=== PATIENT | female | born 1985 | race Asian ===

== ENCOUNTER 2018-09-25 05:44 | Inpatient (IN) | payer BC, MEDICAID ==
[2018-09-25] MEDS ORDERED: OXYTOCIN/NORMAL SALINE 20 UNIT/1,000 ML RTUINJ ONE (06:21)
[2018-09-25] MEDS ORDERED: MISOPROSTOL 0.2 MG TABLET ONE (06:21)
[2018-09-25] MEDS ORDERED: OXYTOCIN 10 UNIT/ML VIAL ONE (06:21)
[2018-09-25] MEDS ORDERED: LIDOCAINE 1% INJ-PF (10 MG/ML) 30 ML SDV ONE (06:21)
[2018-09-25] MEDS: RINGERS SOLUTION,LACTATED 1,000 ML IV PRN ×3 (06:41→09:13)
--- NOTE | 2018-09-25 07:18 | Admission Physical ---
Datetime Report Generated by CPN: 09/25/2018 07:18 CURRENT ADMISSION Chief Complaint: Uterine Contractions Indication for Induction: Not Applicable Admit Impression : , Intrauterine ; Active Labor Admit Plan: Admit to Unit; Initiate Labor Protocol ALLERGIES Medication Allergies: Yes Medication Allergies: hydrocodone/VT/Generalized Itc (07/09/2016) Latex: No Latex Allergies OBSTETRICAL HISTORY EDC: 10/19/2018 00:00 : 4 Para: 3 Term: 3 : 0 SAB: 0 IAB: 0 Ectopic: 0 Livin Cesareans: 0 VBACs: 0 Gestational Diabetes: No Rh Sensitization: No Incompetent Cervix: No HARMAN: No Infertility: No ART Treatment: No Uterine Anomaly: No IUGR: No Hx Previous C/S: No Macrosomia: No Hx Loss/Stillborn: No PIH: No Hx : No Placenta Previa/Abruption: No Depression/PP Depression: No PTL/PROM: No Post Hemorrhage: No SEE RECORDS Alcohol: No Marijuana : No Cocaine: No Other Illicit Drugs: No Cigarettes: Never Smoker. 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 Surgery: No Heart Disease: No Hosp/Surgery: No Autoimmune Disorder: No Anesthetic Complications: No Kidney Disease: No Abnormal Pap Smear: No Neuro/Epilepsy: No Psychiatric Disorders: No Other Medical Diseases: No Hepatitis/Liver Disease: No Significant Family History: No Varicosities/Phlebitis: No Trauma/Violence : No Thyroid Dysfunction: No INFECTIOUS HISTORY Gonorrhea: No Genital Herpes: No Chlamydia: No Tuberculosis: Yes Syphilis: No Hepatitis: No HIV/AIDS Exposure: No Rash or Viral Illness: No HPV: No Infectious History Comments: latent tuberculosis treated 2015 PHYSICAL EXAM General: Normal HEENT: Normal Neurologic: Normal Thyroid: Normal Heart: Normal Lungs: Normal Breast: Normal Back: Normal Abdomen: Normal Genitourinary Exam: Normal Extremities: Normal DTRs: Normal Pelvic Type: Adequate Vital Signs: Reviewed; Within Normal Limits VAGINAL EXAM Dilatation: 5-6 Effacement: 50 Station: -2 Contraction Comments: q 5 min MEMBRANES Membranes: Intact FETUS A EGA: 36.4 Monitoring: External US FHR- Baseline: 120s Variability: Moderate 6-25bpm Accelerations: 15X15 Decelerations: None FHR Category: Category I Admit Comment: Pt c/o contractions. Membranes intact. GBS Negative. PLANS FOR LABOR AND DELIVERY Labor and Delivery: None Pain Management: Epidural Feeding Preference: Both Benefit of Breast Feed Discussed: Yes Circumcision: Yes INFORMED CONSENT Signature: with User ID: [email or web address]
[2018-09-25 07:27] LABS: ABSOLUTE EOSINOPHILS # (AUTO) 0.1 10^3/uL (0.0-0.6); ABSOLUTE LYMPHOCYTES (AUTO) 1.3 10^3/uL (0.5-4.7); ABSOLUTE MONOCYTES (AUTO) 0.6 10^3/uL (0.1-1.4); ABSOLUTE NEUT (AUTO) 5.4 10^3/uL (1.7-8.2); BASOPHILS % (AUTO) 0.3 % (0-2); EOSINOPHILS % (AUTO) 1.4 % (0-6); HEMATOCRIT 29.6 % (36.0-47.0); HEMOGLOBIN 9.9 g/dL (12.0-15.5); LYMPHOCYTES % (AUTO) 17.7 % (13-45); MEAN CORPUSCULAR HEMOGLOBIN 28.2 pg (27.0-33.4); MEAN CORPUSCULAR HGB CONC 33.6 g/dL (32.0-36.0); MEAN CORPUSCULAR VOLUME 84 fl (80-97); MONOCYTES % (AUTO) 8.5 % (3-13); PLATELET COUNT 222 10^3/uL (150-450); RED BLOOD COUNT 3.52 10^6/uL (3.72-5.28); RED CELL DISTRIBUTION WIDTH 13.6 % (11.5-14.0); SEGMENTED NEUTROPHILS % (AUTO) 72.1 % (42-78); TOTAL CELLS COUNTED % (AUTO) 100 %; WHITE BLOOD COUNT 7.5 10^3/uL (4.0-10.5)
[2018-09-25] MEDS ORDERED: FENTANYL/BUPIVACAINE/NS/PF 300 MCG/150 ML RTUINJ EPI ONE (08:24)
[2018-09-25] MEDS ORDERED: EPHEDRINE SULFATE INJ 50 MG/1 ML AMPULE ONE (08:24)
[2018-09-25] MEDS ORDERED: BUPIVACAINE HCL 0.25 % INJ/PF (2.5 MG/1 ML) 30 ML VIAL ONE (08:25)
[2018-09-25] MEDS ORDERED: LIDOCAINE 1.5%/EPINEPHRINE INJ 5 ML AMP ONE (08:25)
[2018-09-25] MEDS ORDERED: PENICILLIN G POTASSIUM 5,000,000 UNIT in DEXTROSE 5%-WATER 100 ML IV ONE (08:51)
[2018-09-25] MEDS ORDERED: PENICILLIN G-K 5 MILLION UNIT VIAL ONE ×2 (08:54→12:39)
[2018-09-25 12:21] LABS: APPEARANCE,URINE CLEAR; BILIRUBIN,URINE NEGATIVE (NEGATIVE); COLOR,URINE COLORLESS; GLUCOSE, URINE NEGATIVE (NEGATIVE); KETONES,URINE NEGATIVE (NEGATIVE); LEUKOCYTE ESTERASE,URINE TRACE (NEGATIVE); NITRITE,URINE NEGATIVE (NEGATIVE); PROTEIN,URINE NEGATIVE (NEGATIVE); URINE SPECIFIC GRAVITY 1.004; UROBILINOGEN,URINE NEGATIVE mg/dL (<2.0)
[2018-09-25] MEDS ORDERED: PENICILLIN G POTASSIUM 2,500,000 UNIT in DEXTROSE 5%-WATER 50 ML IV SCH (12:52)
[2018-09-25 12:53] LABS: URINE AMPHETAMINES SCREEN NEGATIVE; URINE BARBITURATES SCREEN NEGATIVE; URINE BENZODIAZEPINES SCREEN NEGATIVE; URINE COCAINE SCREEN NEGATIVE; URINE MARIJUANA (THC) SCREEN NEGATIVE; URINE METHADONE SCREEN NEGATIVE; URINE PHENCYCLIDINE SCREEN NEGATIVE
[2018-09-25] MEDS ORDERED: ACETAMINOPHEN WITH CODEINE #3 TABLET PO PRN ×2 (15:10)
[2018-09-25] MEDS ORDERED: OXYTOCIN/NORMAL SALINE 20 UNIT/1,000 ML RTUINJ IV PRN (15:10)
[2018-09-25] MEDS ORDERED: MEASLES,MUMPS&RUBELLA VACC/PF 0.5 ML VIAL SUBCUT PRN (15:10)
[2018-09-25] MEDS ORDERED: MAGNESIUM HYDROXIDE SUSP 30 ML UDCUP PO PRN (15:10)
[2018-09-25] MEDS ORDERED: ACETAMINOPHEN 650 MG SUPP.RECT PR PRN (15:10)
[2018-09-25] MEDS ORDERED: DIBUCAINE 1% OINTMENT 56 GM TP PRN (15:10)
[2018-09-25] MEDS ORDERED: PSEUDOEPHEDRINE HCL 30 MG TABLET PO PRN (15:10)
[2018-09-25] MEDS ORDERED: DIPHENHYDRAMINE HCL 25 MG CAPSULE PO PRN (15:10)
[2018-09-25] MEDS ORDERED: GLYCERIN/WITCH HAZEL LEAF 1 EACH MED..PAD TP PRN (15:10)
[2018-09-25] MEDS ORDERED: BENZOCAINE/MENTHOL AEROSOL SPRAY 56 ML TOP PRN (15:10)
[2018-09-25] MEDS ORDERED: PROMETHAZINE HCL INJ 25 MG/1 ML VIAL IV PRN (15:10)
[2018-09-25] MEDS ORDERED: ZOLPIDEM TARTRATE 5 MG TABLET PO PRN (15:10)
[2018-09-25] MEDS ORDERED: DIPH/PERTUSS(ACELL)/TETANUS VAC/PF 0.5 ML SYR (>=10YO) IM PRN (15:10)
[2018-09-25] MEDS ORDERED: PROMETHAZINE HCL 25 MG TABLET PO PRN (15:10)
[2018-09-25] MEDS ORDERED: NA PHOS,M-B/NA PHOS,DI-BA (ADULT) 133 ML ENEMA PR PRN (15:10)
[2018-09-25] MEDS ORDERED: PROMETHAZINE HCL 25 MG SUPP.RECT PR PRN (15:10)
[2018-09-25] MEDS ORDERED: MISOPROSTOL 0.2 MG TABLET PR ONE (15:14)
--- NOTE | 2018-09-25 16:11 | Delivery Summary ---
Del Sum A-C Datetime Report Generated by CPN: 09/25/2018 16:10 DELIVERY PERSONNEL DELIVERY PERSONNEL: [id number] Delivery Doctor:: Fanta Pillai CNM Nurse Household Refrigeration Mechanic Certified:: Fanta Pillai CNM Labor and Delivery Nurse:: Shanna Jimenez RNspray painter helper Nurse:: Gena Moyer RN Nursery Nurse:: Jud Porter RN Process Mechanic/METAL STORAGE WORKER: Mary Christopher CNA II Process Mechanic/METAL STORAGE WORKER: Kiana Sandy, TOBACCO SPRAYER MATERNAL INFORMATION Delivery Anesthesia: Epidural Medications After Delivery: Pitocin Drip 20 Units/1000ml NSS; Cytotec 1000mcg Per Rectum/Vagina Estimated Blood Loss (ml): 400 Maternal Complications: None Provider Comments: LAMONTE VIABLE MALE WITH SPONTANEOUS CRY. NO LACERATIONS. CORD DOUBLE CLAMPED AND CUT. SPONTANEOUS INTACT PLACENTA WITH 3VC. CYTOTEC IL 1000MG GIVEN FOR UTERINE ATONY. MOTHER AND INFANT STABLE IN L_D#5 LABOR SUMMARY EDC: 10/19/2018 00:00 No. Babies in Womb: 1 Attempted: No Labor Anesthesia: Epidural LABOR INFORMATION Reason for Induction: Not Applicable Onset of Labor: 09/25/2018 02:30 Complete Dilatation: 09/25/2018 13:23 Oxytocin: N/A Group B Beta Strep: unknown Antibiotics # of Doses: 2 Antibiotics Time of Last Dose: 12:44 Name of Antibiotic Given: penicillin Steroids Given: None Reason Steroids Not Administered: Not Applicable MEMBRANES Membranes Rupture Method: Artificial Rupture of Membranes: 09/25/2018 13:20 Length of Rupture (hr): 1.37 Amniotic Fluid Color: Clear Amniotic Fluid Amount: Moderate Amniotic Fluid Odor: Normal STAGES OF LABOR Stage 1 hr: 10 Stage 1 min: 53 Stage 2 hr: 1 Stage 2 min: 19 Stage 3 hr: 0 Stage 3 min: 5 Total Time in Labor hr: 12 Total Time in Labor min: 17 VAGINAL DELIVERY Episiotomy: None Laceration #1: None Laceration Extension #1: N/A BABY A INFORMATION Delivery Date/Time: 09/25/2018 14:42 Method of Delivery: Vaginal Born in Route : No : N/A Forceps: N/A Vacuum Extraction: N/A Shoulder Dystocia : No PRESENTATION/POSITION BABY A Presentation: Cephalic Cephalic Presentation: Vertex Vertex Position: Left Occipital Anterior Breech Presentation: N/A PLACENTA INFORMATION BABY A Placenta Delivery Time : 09/25/2018 14:47 Placenta Method of Delivery: Spontaneous Placenta Status: Delivered SCORES BABY A Heart Rate 1 min: >100 bpm Resp Effort 1 min: Good Cry Reflex Irritability 1 min: Cough or Sneeze or Pulls Away Muscle Tone 1 min: Active Motion Color 1 min: Body Sun, Extremities Blue Resuscitation Effort 1 min: N/A SCORE 1 MIN: 9 Heart Rate 5 min: >100 bpm Resp Effort 5 min: Good Cry Reflex Irritability 5 min: Cough or Sneeze or Pulls Away Muscle Tone 5 min: Active Motion Color 5 min: Body Sun, Extremities Blue Resuscitation Effort 5 min: N/A SCORE 5 MIN: 9 INFORMATION BABY A Gestational Age at Delivery: 36.4 Gestational Status: Late - 34- 36.6 Weeks Outcome : Liveborn Condition : Stable Infant Sex: Male IDENTIFICATION BABY A Infant Verification Date/Time: 09/25/2018 14:50 ID Band Number: [id number] Mother's Name Verified: Yes RN Verifying Infant: Shmaar Jimenez, RN, MAbby Moyer, RN WEIGHT/LENGTH BABY A Birthweight (gm): 2798 Infant Weight (lb): 6 Weight (oz): 3 Length (in): 19.00 Length (cm): 48.26 CORD INFORMATION BABY A Nuchal Cord : N/A Cord Blood Taken: Yes-For Eval (Mom's Blood Type - or O+) Suction: None ASSESSMENT BABY A Infant Complications: None Physical Findings at Delivery: Within Normal Limits Infant Respirations: Appears Normal Skin to Skin: Yes Skin to Skin Time (min): 60 Business Planning Analyst/ALS Called : No Care By: susana porter Transferred To: Remains with Mother BABY B INFORMATION : N/A SIGNATURES Assignment: Janet Jimenez MD Signature: with User ID: [email or web address] : with User ID: [email or web address] : I was personally available for consultation and serving as supervising physician for the MLP.
[2018-09-25] MEDS: FERROUS SULFATE 325 MG TABLET PO SCH (17:31)
[2018-09-25] MEDS: IBUPROFEN 800 MG TABLET PO SCH (17:31)
[2018-09-25] MEDS: DOCUSATE SODIUM 100 MG CAPSULE PO SCH (17:32)
[2018-09-25] MEDS: FAMOTIDINE 20 MG TABLET PO SCH (21:53)
[2018-09-26] MEDS: IBUPROFEN 800 MG TABLET PO SCH ×3 (01:24→17:16)
[2018-09-26 07:36] LABS: ABSOLUTE EOSINOPHILS # (AUTO) 0.1 10^3/uL (0.0-0.6); ABSOLUTE MONOCYTES (AUTO) 1.2 10^3/uL (0.1-1.4); ABSOLUTE NEUT (AUTO) 9.4 10^3/uL (1.7-8.2); BASOPHILS % (AUTO) 0.3 % (0-2); EOSINOPHILS % (AUTO) 1.1 % (0-6); HEMATOCRIT 29.6 % (36.0-47.0); HEMOGLOBIN 9.8 g/dL (12.0-15.5); LYMPHOCYTES % (AUTO) 15.6 % (13-45); MEAN CORPUSCULAR HEMOGLOBIN 27.6 pg (27.0-33.4); MEAN CORPUSCULAR HGB CONC 33.1 g/dL (32.0-36.0); MEAN CORPUSCULAR VOLUME 84 fl (80-97); MONOCYTES % (AUTO) 9.1 % (3-13); PLATELET COUNT 237 10^3/uL (150-450); RED BLOOD COUNT 3.54 10^6/uL (3.72-5.28); RED CELL DISTRIBUTION WIDTH 13.6 % (11.5-14.0); SEGMENTED NEUTROPHILS % (AUTO) 73.9 % (42-78); TOTAL CELLS COUNTED % (AUTO) 100 %; WHITE BLOOD COUNT 12.7 10^3/uL (4.0-10.5)
[2018-09-26] MEDS: FERROUS SULFATE 325 MG TABLET PO SCH ×2 (09:11→17:15)
[2018-09-26] MEDS: PRENATAL VITAMIN W DHA CAPSULE PO SCH (09:12)
[2018-09-26] MEDS: FAMOTIDINE 20 MG TABLET PO SCH ×2 (09:12→21:07)
[2018-09-26] MEDS: DOCUSATE SODIUM 100 MG CAPSULE PO SCH ×2 (09:12→17:16)
[2018-09-26] MEDS: SENNOSIDES/DOCUSATE 8.6-50 MG 1 EACH TABLET PO SCH (09:12)
--- NOTE | 2018-09-26 10:58 | PDOC PROGRESS REPORT ---
Subjective-OB Progress Note for:: 09/26/18 Subjective: Pt doing well, no concerns. She reports light bleeding, reg diet and voiding without difficulty. Cramps not relieved by Motrin, declined other pain med for now. Physical Exam (OB) Vital Signs: Temp Pulse Resp BP Pulse Ox 98.2 F 84 18 118/77 98 09/26/18 07:58 09/26/18 07:58 09/26/18 07:58 09/26/18 07:58 09/26/18 07:58 Intake & Output 09/25/18 09/26/18 09/27/18 06:59 06:59 06:59 Intake Total 317 Balance 317 Weight 59.6 kg - PIH/Pre-Eclampsia DTR's: 2 + Clonus: Negative Headache: Absent Epigastric Pain: No Visual Changes: No - Lochia Lochia Amount: Scant < 10 ml Lochia Color: Rubra/Red - Abdomen Description: Soft Hernia Present: No Fundal Description: Firm, Midline Fundal Height: u/u - u/2 Objective-Diagnostic Laboratory: 09/26/18 06:20 09/25/18 09/26/18 07:47 06:20 WBC 12.7 H RBC 3.54 L Hgb 9.8 L Hct 29.6 L MCV 84 MCH 27.6 MCHC 33.1 RDW 13.6 Plt Count 237 Seg Neutrophils % 73.9 Lymphocytes % 15.6 Monocytes % 9.1 Eosinophils % 1.1 Basophils % 0.3 Absolute Neutrophils 9.4 H Absolute Lymphocytes 2.0 Absolute Monocytes 1.2 Absolute Eosinophils 0.1 Absolute Basophils 0.0 Urine Color COLORLESS Urine Appearance CLEAR Urine pH 8.0 Ur Specific [place] 1.004 Urine Protein NEGATIVE Urine Glucose (UA) NEGATIVE Urine Ketones NEGATIVE Urine Blood MODERATE H Urine Nitrite NEGATIVE Ur Leukocyte Esterase TRACE H Assessment and Plan(PN) - Assessment and Plan (1) Vaginal delivery Is this a current diagnosis for this admission?: Yes - Time Spent with Patient Time with patient: Less than 15 minutes Medications reviewed and adjusted accordingly: Yes - Disposition Anticipated Discharge: Home Within: within 24 hours
[2018-09-27] MEDS: IBUPROFEN 800 MG TABLET PO SCH ×2 (01:48→10:08)
[2018-09-27] MEDS: SENNOSIDES/DOCUSATE 8.6-50 MG 1 EACH TABLET PO SCH (10:09)
[2018-09-27] MEDS: PRENATAL VITAMIN W DHA CAPSULE PO SCH (10:09)
[2018-09-27] MEDS: FERROUS SULFATE 325 MG TABLET PO SCH (10:09)
[2018-09-27] MEDS: FAMOTIDINE 20 MG TABLET PO SCH (10:09)
[2018-09-27] MEDS: DOCUSATE SODIUM 100 MG CAPSULE PO SCH (10:09)
[2018-09-27 13:02] VITALS: BP 128/88
--- NOTE | 2018-09-27 14:29 | PDOC DISCHARGE SUMMARY ---
Final Diagnosis Discharge Date: 09/27/18 - Final Diagnosis (1) Anemia complicating , third trimester Is this a current diagnosis for this admission?: Yes (2) delivery, delivered Is this a current diagnosis for this admission?: Yes (3) labor in third trimester Is this a current diagnosis for this admission?: Yes (4) Vaginal delivery Is this a current diagnosis for this admission?: Yes Discharge Data - Discharge Medication Prescriptions: Ibuprofen [Motrin 800 mg Tablet] 800 mg PO Q8HP PRN #30 tablet PRN Reason: Abdominal Cramping Docusate Sodium [Colace 100 mg Capsule] 100 mg PO BID #60 capsule Home Medications: Pnv95/Iron Fum/Folic Acid [ Caplet] 1 tab PO DAILY 07/09/16 Ferrous Sulfate [Feosol 325 mg Tablet] 325 mg PO BID #60 tablet 07/10/16 Docusate Sodium [Colace 100 mg Capsule] 100 mg PO BID #60 capsule 09/27/18 Ibuprofen [Motrin 800 mg Tablet] 800 mg PO Q8HP PRN #30 tablet 09/27/18 Reason(s) for Admission: Labor Procedures: Ultrasound Intrapartum Procedure(s): Spontaneous Vaginal Delivery - Diagnosis Test Laboratory: Temp Pulse Resp BP Pulse Ox 98.0 F 82 18 117/76 98 09/27/18 10:00 09/27/18 10:00 09/27/18 10:00 09/26/18 19:27 09/27/18 10:00 09/25/18 09/25/18 09/25/18 07:00 07:00 07:47 RBC 3.52 L Hgb 9.9 L Hct 29.6 L Urine Opiates Screen Cancelled NEGATIVE 09/26/18 06:20 RBC 3.54 L Hgb 9.8 L Hct 29.6 L Urine Opiates Screen - Discharge information/Instructions Discharge Activity: Activity As Tolerated, Balance Activity w/Rest, No Lifting Over 10 Pounds, Pelvic Rest, No tub bath, Walk Frequently Discharge Diet: As Tolerated, Regular Disposition: HOME, SELF-CARE Follow up with: [facility] in: 5, Weeks
== END 2018-09-27 15:05 | disposition home or self-care (01) | DRG 807 ==
LOC: LC 05:44 → LR 06:11 → 2S 17:04
PROVIDERS: ADMIT Obstetrics & Gynecology; ATTEND Obstetrics & Gynecology
PROC: 10E0XZZ Delivery of Products of Conception, External Approach (ICD-10-PCS; principal; 2018-09-25)
DX: O60.14X0 Preterm labor third trimester with preterm delivery third trimester, not applicable or unspecified (principal); Z37.0 Single live birth; O62.2 Other uterine inertia; Z3A.36 36 weeks gestation of pregnancy; O99.02 Anemia complicating childbirth; D64.9 Anemia, unspecified
CPT/HCPCS: 36415; 80307; 81005; 85025; 86592; 86850; 86900; 86901; 87081; J2540; J2590; J3010; J3490

== ENCOUNTER 2018-11-16 09:13 | Day surgery (SDC) | payer BC, MEDICAID ==
[2018-11-16] MEDS ORDERED: FAMOTIDINE INJ/PF 20 MG/2 ML SDV IV ONE ×2 (09:50→10:30)
[2018-11-16] MEDS ORDERED: MIDAZOLAM 2 MG/2 ML INJ ONE ×2 (09:50→11:03)
[2018-11-16] MEDS ORDERED: METOCLOPRAMIDE HCL INJ/PF 10 MG/2 ML SDV ONE (09:55)
[2018-11-16 09:56] LABS: APPEARANCE,URINE CLEAR; BILIRUBIN,URINE NEGATIVE (NEGATIVE); COLOR,URINE YELLOW; GLUCOSE, URINE NEGATIVE (NEGATIVE); KETONES,URINE NEGATIVE (NEGATIVE); LEUKOCYTE ESTERASE,URINE NEGATIVE (NEGATIVE); NITRITE,URINE NEGATIVE (NEGATIVE); PROTEIN,URINE NEGATIVE (NEGATIVE); URINE SPECIFIC GRAVITY 1.023; UROBILINOGEN,URINE NEGATIVE mg/dL (<2.0)
[2018-11-16 10:07] LABS: HEMATOCRIT 37.7 % (36.0-47.0); HEMOGLOBIN 12.4 g/dL (12.0-15.5); MEAN CORPUSCULAR HEMOGLOBIN 27.8 pg (27.0-33.4); MEAN CORPUSCULAR HGB CONC 32.9 g/dL (32.0-36.0); MEAN CORPUSCULAR VOLUME 84 fl (80-97); PLATELET COUNT 326 10^3/uL (150-450); RED BLOOD COUNT 4.48 10^6/uL (3.72-5.28); RED CELL DISTRIBUTION WIDTH 16.8 % (11.5-14.0); WHITE BLOOD COUNT 5.6 10^3/uL (4.0-10.5)
[2018-11-16] MEDS ORDERED: PROMETHAZINE HCL INJ 25 MG/1 ML VIAL IV PRN ×2 (10:23)
[2018-11-16] MEDS ORDERED: DIPHENHYDRAMINE HCL 50 MG/ML VIAL IV PRN (10:23)
[2018-11-16] MEDS ORDERED: MORPHINE SULFATE 10 MG/ML INJ IV PRN (10:23)
[2018-11-16] MEDS ORDERED: FENTANYL CITRATE INJ/PF 100 MCG/2 ML AMPUL IV PRN ×3 (10:23)
[2018-11-16] MEDS ORDERED: MEPERIDINE HCL/PF INJ 25 MG/1 ML DISP.SYRIN IV PRN (10:23)
[2018-11-16] MEDS ORDERED: MIDAZOLAM 2 MG/2 ML INJ IV ONE (10:30)
[2018-11-16] MEDS ORDERED: METOCLOPRAMIDE HCL INJ/PF 10 MG/2 ML SDV IV ONE (10:30)
[2018-11-16] MEDS ORDERED: PROPOFOL INJ 200 MG/20 ML VIAL IV ONE (11:03)
[2018-11-16] MEDS ORDERED: FENTANYL CITRATE INJ/PF 100 MCG/2 ML AMPUL ONE ×2 (11:03→12:21)
[2018-11-16] MEDS ORDERED: RINGERS SOLUTION,LACTATED 1,000 ML IV PRN (12:25)
[2018-11-16] MEDS ORDERED: IBUPROFEN 800 MG TABLET PO PRN (12:25)
[2018-11-16] MEDS ORDERED: MORPHINE SULFATE 10 MG/ML INJ IM PRN (12:25)
[2018-11-16] MEDS ORDERED: OXYCODONE-ACETAMINOPHEN 5-325 MG TABLET PO PRN ×2 (12:26)
[2018-11-16] MEDS ORDERED: KETOROLAC TROMETHAMINE INJ/PF 30 MG/1 ML SDV ONE (12:52)
[2018-11-16] MEDS ORDERED: ACETAMINOPHEN 1,000 MG/100 ML RTUPB IV ONE (12:53)
[2018-11-16] MEDS ORDERED: ONDANSETRON HCL INJ/PF 4 MG/2 ML SDV ONE (13:30)
[2018-11-16] MEDS ORDERED: NEOSTIGMINE METHYLSULFATE 10 MG/10 ML VIAL ONE (13:30)
[2018-11-16] MEDS ORDERED: DEXAMETHASONE SOD PHOSPHATE INJ 4 MG/1 ML VIAL ONE (13:30)
[2018-11-16] MEDS ORDERED: GLYCOPYRROLATE 1 MG/5 ML SYRINGE ONE (13:30)
[2018-11-16] MEDS ORDERED: ROCURONIUM BROMIDE INJ 50 MG/5 ML VIAL IV ONE (13:30)
[2018-11-16] MEDS ORDERED: OXYCODONE-ACETAMINOPHEN 5-325 MG TABLET ONE (13:48)
--- NOTE | 2018-11-16 13:55 | OPERATIVE REPORT E ---
Operative Report NAME: MONIQUE SRIVASTAVA : 1985 AGE: 33Y DATE OF SURGERY: 11/16/2018 ROOM: PREOPERATIVE DIAGNOSIS: Undesired fertility. POSTOPERATIVE DIAGNOSIS: Undesired fertility. SURGEON: ALMA VALLEJO M.D. TIN WHIZ MACHINE OPERATOR: Magui Pierce, Group Art Supervisor Pension Agent ANESTHESIA: Dr. Foley with general. FINDINGS: Normal tubes and ovaries. COMPLICATIONS: None. ESTIMATED BLOOD LOSS: 10 mL. SPECIMENS REMOVED: None. PROCEDURE: Laparoscopic tubal cauterization. PROCEDURE IN DETAIL: The patient was taken to the operating room and prepared and draped in a normal sterile fashion in the dorsal lithotomy position. Under sterile conditions, an in-and-out cath was performed of approximately 100 mL of clear urine. A sterile speculum was placed in the vagina and the cervix was grasped on the anterior lip with a single-toothed tenaculum. The Hulka clamp was placed on the cervix for uterine manipulation without difficulty. The tenaculum and speculum were removed. Gloves were changed and attention was turned to the upper portion of the case where an umbilical skin incision was made to accommodate a 5 mm port. A Veress needle was introduced through this incision and peritoneal cavity placement was confirmed with free flowing sterile water. The peritoneal cavity was then inflated with approximately 2 L of CO2 gas. The Veress needle was removed and a 5 mm port was placed. We placed the Veress needle through this incision and the camera was introduced while the patient was placed in Trendelenburg. Under direct visualization, another 5 mm port was placed in the right lower quadrant and the bowel was swept away with a blunt probe. A Kleppinger was then introduced and beginning with the right fallopian tube, this was grasped and coagulated approximately 3.5 cm until tubal occlusion was obtained, which was then repeated on the left fallopian tube without difficulty. The rest of the peritoneal cavity was inspected and found to have normal findings. The trocar was then removed from the right lower quadrant and the camera was removed and the umbilical trocar was used to deflate the abdomen. This trocar was removed and both incisions were closed with 4-0 Vicryl. The patient tolerated the procedure well. Sponge, lap, and needle counts were correct x2. The Hulka clamp was removed at the end of the case, and the patient was taken to recovery in stable condition. DICTATING PHYSICIAN: ALMA VALLEJO M.D. [id number] PHY#: [id number] ID: [id number] JOB#: [id number] ACCT: [id number] cc:ALMA VALLEJO M.D. >
[2018-11-16 15:12] VITALS: BP 107/67
== END 2018-11-16 14:50 | disposition home or self-care (01) ==
LOC: OROUT 09:13
PROVIDERS: ATTEND Obstetrics & Gynecology
DX: Z30.2 Encounter for sterilization (principal); D64.9 Anemia, unspecified; Z88.5 Allergy status to narcotic agent; Z79.899 Other long term (current) drug therapy
CPT/HCPCS: 36415; 85027; 81025; 81001; 58670; J2250; J3490 ×2; J1100; J3010; J1885; J2765; J2710; J2405; J2704; S0028; J0131; 851

== ENCOUNTER 2019-03-16 22:07 | Emergency (ER) | payer BC, MEDICAID ==
[2019-03-17] MEDS ORDERED: TETRACAINE HCL 0.5% OPH SOLN 4 ML OD ONE (00:46)
--- NOTE | 2019-03-17 00:47 | ER Document Report ---
ED Medical Screen (RME) - General Chief Complaint: Eye Injury Stated Complaint: RIGHT EYE SCRATCHED Time Seen by Provider: 03/17/19 00:44 Primary Care Provider: FILI VILLATORO PA [Primary Care Provider] - Follow up as needed Notes: Patient's 34-year-old female presents to the emergency department with irritation to her right eye. States her son was reaching for something and accidentally poked her in the right eye. EYES: Pupils equal, round, and reactive to light. Extraocular movements intact. Conjunctivae injected noted right eye, tearing noted right eye. I have greeted and performed a rapid initial assessment of this patient. A comprehensive ED assessment and evaluation of the patient, analysis of test results and completion of the medical decision making process will be conducted by additional ED providers. I have specifically instructed the patient or family members with the patient to immediately return to any nursing staff should anything change in the patient's condition or with their chief complaint. This medical record was dictated with voice recognizing software. There may be grammatical, syntax errors that are unintended. TRAVEL OUTSIDE OF THE [place] IN LAST 30 DAYS: No - Related Data Allergies/Adverse Reactions: hydrocodone [From Vicodin] Allergy (Mild, Verified 11/16/18 09:29) Generalized Itching Past Medical History - Past Medical History Cardiac Medical History: Denies: Hx Coronary Artery Disease, Hx Heart Attack, Hx Hypertension Pulmonary Medical History: Denies: Hx Asthma, Hx Bronchitis, Hx COPD, Hx Pneumonia Neurological Medical History: Denies: Hx Cerebrovascular Accident, Hx Seizures Musculoskeltal Medical History: Denies Hx Arthritis - Immunizations Hx Diphtheria, Pertussis, Tetanus Vaccination: Yes History of Influenza Vaccine for 03/2017 - 08/2017 Season: No Physical Exam - Vital signs Vitals: Temp Pulse Resp BP Pulse Ox 97 F L 68 16 115/80 98 03/16/19 22:21 03/16/19 22:21 03/16/19 22:21 03/16/19 22:21 03/16/19 22:21 Course - Vital Signs Vital signs: Temp Pulse Resp BP Pulse Ox 97 F L 68 16 115/80 98 03/16/19 22:21 03/16/19 22:21 03/16/19 22:21 03/16/19 22:21 03/16/19 22:21 Doctor's Discharge - Discharge Referrals: FILI VILLATORO PA [Primary Care Provider] - Follow up as needed
[2019-03-17] MEDS ORDERED: BESIFLOXACIN HCL 0.6% OPH SUSP 5 ML BOTTLE OD ONE (03:01)
[2019-03-17] MEDS ORDERED: HYDROCODONE/ACETAMINOPHEN 5-325 MG (6 TAB/ER DISP) PO PRN (03:03)
--- NOTE | 2019-03-17 03:06 | ER Document Report ---
ED Eye Complaint - General Chief Complaint: Eye Problem Stated Complaint: RIGHT EYE SCRATCHED Time Seen by Provider: 03/17/19 00:44 Primary Care Provider: ELIZABETH PINZON MD [ACTIVE STAFF] - 03/19/19 Notes: Patient is a 34-year-old female that comes to the emergency department for chief complaint of scratch to the right eye. She states she was poked by the fingernail of her 2-year-old when she was holding earlier tonight at about 7 PM. She reports a lot of tears, foreign body sensation, but she denies loss of vision. She wears glasses to drive but she does not wear contacts. She denies any other injuries or complaints. She is not . Tetanus is up-to-date. TRAVEL OUTSIDE OF THE [place] IN LAST 30 DAYS: No - Related Data Allergies/Adverse Reactions: No Known Allergies Allergy (Verified 03/17/19 03:03) Past Medical History - General Information source: Patient - Social History Smoking Status: Never Smoker Frequency of alcohol use: None Drug Abuse: None Lives with: Family Family History: None Patient has suicidal ideation: No Patient has homicidal ideation: No - Past Medical History Cardiac Medical History: Denies: Hx Coronary Artery Disease, Hx Heart Attack, Hx Hypertension Pulmonary Medical History: Denies: Hx Asthma, Hx Bronchitis, Hx COPD, Hx Pneumonia Neurological Medical History: Denies: Hx Cerebrovascular Accident, Hx Seizures Musculoskeletal Medical History: Denies Hx Arthritis - Immunizations Immunizations up to date: Yes Hx Diphtheria, Pertussis, Tetanus Vaccination: Yes Review of Systems - Review of Systems Constitutional: No symptoms reported EENT: See HPI Cardiovascular: No symptoms reported Respiratory: No symptoms reported Gastrointestinal: No symptoms reported Genitourinary: No symptoms reported Female Genitourinary: No symptoms reported Musculoskeletal: No symptoms reported Skin: No symptoms reported Hematologic/Lymphatic: No symptoms reported Neurological/Psychological: No symptoms reported Physical Exam - Vital signs Vitals: Temp Pulse Resp BP Pulse Ox 97 F L 68 16 115/80 98 03/16/19 22:21 03/16/19 22:21 03/16/19 22:21 03/16/19 22:21 03/16/19 22:21 - Notes Notes: GENERAL: Alert, interacts well. No acute distress. HEAD: Normocephalic, atraumatic. EYES: Right-sided mild conjunctival injection, normal eyelids and eyelashes, normal EOMs, normal and responsive pupils. No foreign body, negative Halley sign, no purulent discharge, however on fluorescein staining there is a large obvious corneal abrasion in the lower quadrant. ENT: Oral mucosa moist, tongue midline. Oropharynx unremarkable. Airway patent. Nares patent, no nasal septal hematoma. NECK: Full range of motion. Supple. Trachea midline. LUNGS: Clear to auscultation bilaterally, no wheezes, rales, or rhonchi. No respiratory distress. HEART: Regular rate and rhythm. No murmur ABDOMEN: Soft, non-tender. Non-distended. Bowel sounds present in all 4 quadrants. GENITOURINARY: Deferred EXTREMITIES: Moves all 4 extremities spontaneously. No edema, normal radial and dorsalis pedis pulses bilaterally. No cyanosis. BACK: no cervical, thoracic, lumbar midline tenderness. No saddle anesthesia, normal distal neurovascular exam. Moves all extremities in full range of motion. NEUROLOGICAL: Alert and oriented x3. Normal speech. Cranial nerves II through XII grossly intact. PSYCH: Normal affect, normal mood. SKIN: Warm, dry, normal turgor. No rashes or lesions noted. Course - Re-evaluation Re-evalutation: There is a large corneal abrasion noted in the right eye in the inferior quadrant, otherwise her examination is completely benign. No visual deficits, no other concerns. Because patient had a fingernail injury she was placed on Besivance, referred to ophthalmology, discussed return precautions, patient states understanding and agreement. - Vital Signs Vital signs: Temp Pulse Resp BP Pulse Ox 97.7 F 60 16 134/87 H 99 03/17/19 03:48 03/17/19 03:48 03/17/19 03:48 03/17/19 03:48 03/17/19 03:48 Discharge - Discharge Clinical Impression: Corneal abrasion Qualifiers: Encounter type: initial encounter Laterality: right Qualified Code(s): S05.01XA - Injury of conjunctiva and corneal abrasion without foreign body, right eye, initial encounter Condition: Stable Disposition: HOME, SELF-CARE Instructions: Corneal Abrasion ([facility]) Additional Instructions: There is a fairly large corneal abrasion in the right eye. This should heal quickly with time, however I do recommend the antibiotic eyedrops as directed (1 drop, 3 times a day, for 7 days). Take the pain medication if needed with precautions as prescribed. Follow-up with the fire alarm mechanic for additional evaluation and management. Come back if you worsen including swelling, discolored discharge, fever, loss of vision, severe worsening pain, or any other concerning symptoms. Forms: Return to Work Referrals: ELIZABETH PINZON MD [ACTIVE STAFF] - 03/19/19
[2019-03-17 03:53] VITALS: BP 134/87
[2019-03-17] MEDS ORDERED: BESIFLOXACIN HCL 0.6% OPH SUSP 5 ML BOTTLE ONE (04:04)
== END 2019-03-17 04:18 | disposition home or self-care (01) ==
LOC: ER 22:07
DX: S05.01XA Injury of conjunctiva and corneal abrasion without foreign body, right eye, initial encounter (principal); X58.XXXA Exposure to other specified factors, initial encounter
CPT/HCPCS: 99283